=== PATIENT | female | born 1950 | race African-American/Black ===

== ENCOUNTER 2018-03-23 17:54 | Emergency (ER) | payer MEDICARE, MEDICAID ==
[~2018-03-23] VITALS: Ht 167.6 cm; Wt 80.0 kg
[~2018-03-23 17:54] MED LIST: A/B OTIC AD; CLEOCIN300 M1 PO; CLINDAMYCIN300 MG PO; CLONIDINE0.1 MG PO; CLONIDINE0.2 MG OR; DOXYCYCL HYC100 MG PO; ENALAPRIL10 MG PO; FIORICET OR; HYDROXYZ HCL25 MG PO; INFANRIX IM; LISINOP/HCTZ1 TA1 OR; LISINOPRIL10 MG PO; LORTAB 10 PO; LORTAB 5 OR; LOSARTAN POT25 MG PO; LOTENSIN10 MG PO; MEDDOSEPAK OR; METFORMIN1000 MG PO; METFORMIN500 MG PO; NAPROSYN500 MG PO; NAPROXEN EC375 MG PO; NAPROXEN SOD550 MG OR; NEURONTIN100 MG PO; PREDNISONE20 MG PO; PRILOSEC OTC20 MG OR; TIZANIDINE2 MG PO; ULTRAVATE0.051 EX; ZITHROMAX600 MG PO; ZOFRAN ODT8 MG SL; ZPAK OR
[2018-03-23 18:34] LABS: HEMATOCRIT 38.6 % (37.0-47.0); HEMOGLOBIN 12.2 g/dl (12.0-16.0); IMMATURE GRANULOCYTES 0.3 % (0.0-1.0); MEAN CELL VOLUME 81.1 fL CALC (80.0-100.0); MEAN CORPUSCULAR HGB 25.6 pG CALC (26.0-32.0); MEAN CORPUSCULAR HGB CONC 31.6 g/L CALC (32.0-36.0); NEUT# 5.19 thou/uL (2.00-7.15); RED BLOOD COUNT 4.76 mill/uL (4.20-5.60); RED CELL DISTRI WIDTH 16.7 % (11.5-15.5)
[2018-03-23 18:45] LABS: ALBUMIN 4.4 g/dL (3.2-5.0); ALKALINE PHOSPHATASE 100 u/l (38-126); BILIRUBIN, TOTAL 0.3 mg/dL (0.0-1.4); BUN 14 mg/dL (8-23); BUN/CREATININE RATIO 17 (12-20 (CALC)); CARBON DIOXIDE 26 mmol/l (22-30); CHLORIDE 103 mmol/l (95-108); CREATININE 0.8 mg/dL (0.5-1.0); GFR > 60 ML/MIN (>=60 (CALC)); GFR FOR AFR.AMER. > 60 ML/MIN (>=60 (CALC)); LIPASE 80 u/l (23-300); POTASSIUM 4.2 mmol/l (3.5-5.1); SGOT/AST 31 u/l (9-36); SGPT/ALT 23 u/l (11-66)
[2018-03-23 18:57] LABS: ANION GAP 15 (6-22 (CALC)); ETHYL ALCOHOL 0 mg/dl (0-30); SODIUM 140 mmol/l (137-146)
[2018-03-23 19:23] LABS: URINE BILIRUBIN - DIPSTICK NEGATIVE (NEGATIVE); URINE BLOOD DIPSTICK NEGATIVE (NEGATIVE); URINE CLARITY CLEAR; URINE COLOR YELLOW; URINE GLUCOSE - DIPSTICK NEGATIVE (NEGATIVE); URINE KETONE NEGATIVE (NEGATIVE); URINE LEUK ESTERASE NEGATIVE (NEGATIVE); URINE NITRITE - DIPSTICK NEGATIVE (Negative); URINE PH 5.5 (4.5-8.0); URINE PROTEIN - DIPSTICK NEGATIVE (NEG-TRACE); URINE UROBILINOGEN - DIPSTICK 0.2 E.U./dL (0.2)
[2018-03-23 19:24] LABS: BARBITURATES NEGATIVE (NEGATIVE); COCAINE NEGATIVE (NEGATIVE); METHADONE NEGATIVE (NEGATIVE); OXCYCODONE NEGATIVE (NEGATIVE); TETRAHYDROCANNABIONOL POSITIVE (NEGATIVE); TRICYLIC ANTIDEPRESSANTS NEGATIVE (NEGATIVE)
[2018-03-23 22:29] VITALS: BP 161/76
== END 2018-03-23 22:29 | disposition home or self-care (01) ==
LOC: ED 17:54
PROVIDERS: Family Medicine
DX: T39.1X2A Poisoning by 4-Aminophenol derivatives, intentional self-harm, initial encounter (principal); F41.9 Anxiety disorder, unspecified; I10 Essential (primary) hypertension; E11.9 Type 2 diabetes mellitus without complications

== ENCOUNTER 2018-07-01 18:29 | Emergency (ER) | payer MEDICARE, MEDICAID ==
[~2018-07-01] VITALS: Ht 167.6 cm; Wt 63.6 kg
[2018-07-01 19:00] LABS: HEMATOCRIT 37.6 % (37.0-47.0); HEMOGLOBIN 11.9 g/dl (12.0-16.0); IMMATURE GRANULOCYTES 0.3 % (0.0-5.0); MEAN CELL VOLUME 81.6 fL CALC (80.0-100.0); MEAN CORPUSCULAR HGB 25.8 pG CALC (26.0-32.0); MEAN CORPUSCULAR HGB CONC 31.6 g/L CALC (32.0-36.0); NEUT# 3.62 thou/uL (2.00-7.15); RED BLOOD COUNT 4.61 mill/uL (4.20-5.60); RED CELL DISTRI WIDTH 15.5 % (11.5-15.5)
[2018-07-01 19:26] LABS: ACT PARTIAL THROMBO TIME 21.8 SECONDS (20.0-32.5); PROTHROMBIN TIME 10.5 SECONDS (9.0-12.5)
[2018-07-01 19:27] LABS: ALBUMIN 4.1 g/dL (3.2-5.0); ALKALINE PHOSPHATASE 75 u/l (38-126); ANION GAP 16 (6-22 (CALC)); BILIRUBIN, TOTAL 0.2 mg/dL (0.0-1.4); BUN 16 mg/dL (8-23); BUN/CREATININE RATIO 20 (12-20 (CALC)); CARBON DIOXIDE 21 mmol/l (22-30); CHLORIDE 107 mmol/l (95-108); CREATININE 0.8 mg/dL (0.5-1.0); GFR > 60 ML/MIN (>=60 (CALC)); GFR FOR AFR.AMER. > 60 ML/MIN (>=60 (CALC)); POTASSIUM 4.3 mmol/l (3.5-5.1); SGOT/AST 33 u/l (9-36); SODIUM 139 mmol/l (137-146); TOTAL PROTEIN 7.5 g/dL (6.3-8.2)
[2018-07-01 19:40] LABS: MYOGLOBIN 19 ng/mL (0 - 62)
[2018-07-01 19:55] VITALS: BP 133/85
== END 2018-07-01 19:26 | disposition short-term general hospital (02) ==
LOC: ED 18:29
PROVIDERS: Emergency Medicine
DX: I21.3 ST elevation (STEMI) myocardial infarction of unspecified site (principal); I10 Essential (primary) hypertension; E11.9 Type 2 diabetes mellitus without complications

== ENCOUNTER 2020-07-26 08:03 | Emergency (ER) | payer MEDICARE, MEDICAID ==
[~2020-07-26] VITALS: Ht 167.6 cm; Wt 91.8 kg
[2020-07-26 09:13] LABS: HEMATOCRIT 37.9 % (37.0-47.0); HEMOGLOBIN 11.6 g/dl (12.0-16.0); IMMATURE GRANULOCYTES 0.8 % (0.0-5.0); MEAN CORPUSCULAR HGB 23.9 pG CALC (26.0-32.0); MEAN CORPUSCULAR HGB CONC 30.6 g/dL CAL (32.0-36.0); NEUT# 6.23 thou/uL (2.00-7.15); RED BLOOD COUNT 4.86 mill/uL (4.20-5.60); RED CELL DISTRI WIDTH 16.2 % (11.5-15.5)
[2020-07-26] MEDS ORDERED: TRAZODONE50 MG PO (09:18)
[2020-07-26 09:43] LABS: BUN 21 mg/dL (8-23); BUN/CREATININE RATIO 24 (12-20 (CALC)); CHLORIDE 102 mmol/l (95-108); CREATININE 0.9 mg/dL (0.5-1.0); GFR > 60 ML/MIN (>=60 (CALC)); GFR FOR AFR.AMER. > 60 ML/MIN (>=60 (CALC)); POTASSIUM 4.1 mmol/l (3.5-5.1); SGOT/AST 22 u/l (9-36); SODIUM 139 mmol/l (137-146); TOTAL PROTEIN 7.2 g/dL (6.3-8.2)
[2020-07-26 09:47] LABS: ALKALINE PHOSPHATASE 115 u/l (38-126); ANION GAP 11 (6-22 (CALC)); BILIRUBIN, TOTAL 0.4 mg/dL (0.0-1.4); CARBON DIOXIDE 30 mmol/l (22-30)
[2020-07-26] MEDS ORDERED: CYCLOBENZAPRINE5 MG PO (10:08)
[2020-07-26] MEDS ORDERED: HYDROCO/APAP1 TA9 PO (10:08)
[2020-07-26 10:26] VITALS: BP 133/66
== END 2020-07-26 10:35 | disposition home or self-care (01) ==
LOC: ED 08:03
PROVIDERS: Family Medicine
DX: M54.5 Low back pain (principal); M79.604 Pain in right leg; R10.32 Left lower quadrant pain; I10 Essential (primary) hypertension; E11.9 Type 2 diabetes mellitus without complications; Z79.84 Long term (current) use of oral hypoglycemic drugs

== ENCOUNTER 2020-07-27 10:39 | Emergency (ER) | payer MEDICARE, MEDICAID ==
[~2020-07-27] VITALS: Ht 167.6 cm; Wt 90.0 kg
[~2020-07-27 10:39] MED LIST changes: +CYCLOBENZAPRINE5 MG PO; +HYDROCO/APAP1 TA9 PO; +TRAZODONE50 MG PO
[2020-07-27 11:43] LABS: HEMATOCRIT 39.3 % (37.0-47.0); HEMOGLOBIN 12.3 g/dl (12.0-16.0); IMMATURE GRANULOCYTES 0.8 % (0.0-5.0); MEAN CELL VOLUME 77.7 fL CALC (80.0-100.0); MEAN CORPUSCULAR HGB 24.3 pG CALC (26.0-32.0); MEAN CORPUSCULAR HGB CONC 31.3 g/dL CAL (32.0-36.0); NEUT# 6.29 thou/uL (2.00-7.15); RED BLOOD COUNT 5.06 mill/uL (4.20-5.60); RED CELL DISTRI WIDTH 16.5 % (11.5-15.5)
[2020-07-27 11:54] LABS: ALBUMIN 4.4 g/dL (3.2-5.0); BILIRUBIN, TOTAL 0.4 mg/dL (0.0-1.4); CREATININE 1.2 mg/dL (0.5-1.0); TOTAL PROTEIN 8.3 g/dL (6.3-8.2)
[2020-07-27 12:06] LABS: ACT PARTIAL THROMBO TIME 25.8 SECONDS (20.0-32.5); INTERNATIONAL NORMALIZED RATIO 1.1 RATIO (0.7-1.3); PROTHROMBIN TIME 10.9 SECONDS (9.0-12.5)
[2020-07-27 12:23] VITALS: BP 134/63
== END 2020-07-27 12:24 | disposition short-term general hospital (02) ==
LOC: ED 10:39
DX: K35.80 Unspecified acute appendicitis (principal); I10 Essential (primary) hypertension; E11.9 Type 2 diabetes mellitus without complications; Z79.84 Long term (current) use of oral hypoglycemic drugs
CPT/HCPCS: J1956

== ENCOUNTER 2021-01-15 14:21 | Emergency (ER) | payer MEDICARE, MEDICAID ==
[2021-01-15 14:57] LABS: HEMATOCRIT 35.9 % (37.0-47.0); HEMOGLOBIN 11.1 g/dl (12.0-16.0); IMMATURE GRANULOCYTES 0.9 % (0.0-5.0); MEAN CELL VOLUME 76.5 fL CALC (80.0-100.0); MEAN CORPUSCULAR HGB 23.7 pG CALC (26.0-32.0); MEAN CORPUSCULAR HGB CONC 30.9 g/dL CAL (32.0-36.0); NEUT# 6.86 thou/uL (2.00-7.15); RED BLOOD COUNT 4.69 mill/uL (4.20-5.60)
[2021-01-15 14:58] LABS: URINE BILIRUBIN - DIPSTICK NEGATIVE (NEGATIVE); URINE BLOOD DIPSTICK NEGATIVE (NEGATIVE); URINE COLOR YELLOW; URINE GLUCOSE - DIPSTICK NEGATIVE (NEGATIVE); URINE KETONE NEGATIVE (NEGATIVE); URINE LEUK ESTERASE NEGATIVE (NEGATIVE); URINE PROTEIN - DIPSTICK NEGATIVE (NEG-TRACE); URINE UROBILINOGEN - DIPSTICK 0.2 E.U./dL (0.2)
[2021-01-15 14:59] LABS: URINE NITRITE - DIPSTICK NEGATIVE (Negative)
[2021-01-15 15:12] LABS: ALBUMIN 4.6 g/dL (3.2-5.0); ALKALINE PHOSPHATASE 122 u/l (38-126); ANION GAP 14 (6-22 (CALC)); BUN 33 mg/dL (8-23); BUN/CREATININE RATIO 27 (12-20 (CALC)); CARBON DIOXIDE 24 mmol/l (22-30); CHLORIDE 101 mmol/l (95-108); CREATININE 1.2 mg/dL (0.5-1.0); GFR 45 ML/MIN (>=60 (CALC)); GFR FOR AFR.AMER. 54 ML/MIN (>=60 (CALC)); LIPASE 87 u/l (23-300); POTASSIUM 3.5 mmol/l (3.5-5.1); SGOT/AST 28 u/l (9-36); SODIUM 135 mmol/l (137-146); TOTAL PROTEIN 8.4 g/dL (6.3-8.2)
[2021-01-15 15:17] LABS: BILIRUBIN, TOTAL 0.6 mg/dL (0.0-1.4)
[2021-01-15 15:59] LABS: ACT PARTIAL THROMBO TIME 19.4 SECONDS (20.0-32.5); PROTHROMBIN TIME 10.3 SECONDS (9.0-12.5)
[2021-01-15 16:39] VITALS: BP 107/60
[2021-01-15] MEDS ORDERED: HYDROMORPHON8 MG PO (16:50)
[2021-01-15] MEDS ORDERED: HYDROCHLOROT12.5 M1 PO (16:50)
[2021-01-15] MEDS ORDERED: ALPRAZOLAM0.5 MG PO (16:50)
[2021-01-15] MEDS ORDERED: GLIPIZIDE5 M2 PO (16:51)
[2021-01-15] MEDS ORDERED: LIPITOR40 M1 PO (16:51)
[2021-01-15] MEDS ORDERED: GABAPENTIN300 M2 PO (16:52)
[2021-01-15] MEDS ORDERED: JANUVIA100 MG PO (16:53)
[2021-01-15] MEDS ORDERED: METFORMIN HCL1000 MG PO (16:53)
[2021-01-15] MEDS ORDERED: NORVASC PO (16:53)
[2021-01-15] MEDS ORDERED: LOSARTAN/HCT1 TA2 PO (16:53)
== END 2021-01-15 16:40 | disposition home or self-care (01) ==
LOC: ED 14:21
DX: R55 Syncope and collapse (principal); R79.9 Abnormal finding of blood chemistry, unspecified; E11.9 Type 2 diabetes mellitus without complications; I10 Essential (primary) hypertension; Z79.84 Long term (current) use of oral hypoglycemic drugs; Z20.822 Contact with and (suspected) exposure to COVID-19

== ENCOUNTER 2022-08-14 11:22 | Emergency (ER) | payer MEDICARE, MEDICAID ==
[~2022-08-14] VITALS: Ht 167.6 cm; Wt 92.0 kg
[2022-08-14] VITALS (8 sets, daily range): BP systolic 110–137; BP diastolic 65–84
[~2022-08-14 11:22] MED LIST changes: +ALPRAZOLAM0.5 MG PO; +GABAPENTIN300 M2 PO; +GLIPIZIDE5 M2 PO; +HYDROCHLOROT12.5 M1 PO; +HYDROMORPHON8 MG PO; +JANUVIA100 MG PO; +LIPITOR40 M1 PO; +LOSARTAN/HCT1 TA2 PO; +METFORMIN HCL1000 MG PO; +NORVASC PO
[2022-08-14] MEDS ORDERED: HYDROCO/APAP1 TA9 PO (14:17)
[2022-08-14] MEDS ORDERED: EC-NAPROSYN375 MG PO (14:17)
== END 2022-08-14 14:42 | disposition home or self-care (01) ==
LOC: ED 11:22
PROC: 2W3QX1Z Immobilization of Right Lower Leg using Splint (ICD-10-PCS; principal; 2022-08-14)
DX: S82.841A Displaced bimalleolar fracture of right lower leg, initial encounter for closed fracture (principal); I10 Essential (primary) hypertension; E11.9 Type 2 diabetes mellitus without complications; W01.0XXA Fall on same level from slipping, tripping and stumbling without subsequent striking against object, initial encounter; Y92.009 Unspecified place in unspecified non-institutional (private) residence as the place of occurrence of the external cause; Z79.84 Long term (current) use of oral hypoglycemic drugs